=== PATIENT | female | born 1950 | race Caucasian/White ===

== ENCOUNTER 2017-03-18 09:15 | Emergency (ER) | payer MEDICARE, BC ==
[2017-03-18] MEDS ORDERED: Sodium Chloride 0.9% 10 ML Syringe FLUSH PRN (09:25)
[2017-03-18] MEDS ORDERED: Ondansetron 4 MG/2 ML SDV IVPUSH ONE (09:51)
[2017-03-18] MEDS ORDERED: Aspirin 81 MG Tab.Chew PO ONE (09:55)
--- NOTE | 2017-03-18 09:56 | EDM.PDOC ---
ED HPI GENERAL MEDICAL PROBLEM - General Chief Complaint: Neuro Symptoms/Deficits Stated Complaint: POSS. STROKE Time Seen by Provider: 03/18/17 09:21 Source of Information: Reports: Patient, Family History Limitations: Reports: No Limitations - History of Present Illness INITIAL COMMENTS - FREE TEXT/NARRATIVE: The patient presents with left sided numbness and weakness. She said she went to bed last night at 11pm and she was feeling fine. Last time known well is 11pm last night. She woke up about 2am and she thought she slept on her left arm because she had numbness in to left arm. She went back to sleep and woke up this morning with a slight headache, nausea, vomiting, left arm and leg numbness and she was off balance. When she arrived to the ER she had left sided numbness and weakness. She had no fever, chills, cough, chest pain, shortness of breath or abdominal pain. She started smoking 2 years ago after quiting 33 for 33 years. She did have hypercholesterolemia but with diet and exercise she got that down. She has no history of hypertension. Her father did have a stroke at at 64. She does have a history of A-fib. She is not on blood thinners because with the cardizem she stays out of the A-fib. She is in a sinus bradycardia now. Onset: Gradual Duration: Hour(s): Severity: Moderate Improves with: Reports: None Worsens with: Reports: None Associated Symptoms: Reports: Headaches. Denies: Confusion, Chest Pain, Fever/ Chills, Nausea/Vomiting, Shortness of Breath - Related Data Allergies Allergy/AdvReac Type Severity Reaction Status Date / Time Penicillins Allergy Cannot Verified 03/18/17 09:56 Remember ED ROS GENERAL - Review of Systems Review Of Systems: See Below Constitutional: Reports: No Symptoms HEENT: Reports: No Symptoms Respiratory: Reports: No Symptoms Cardiovascular: Reports: No Symptoms Endocrine: Reports: No Symptoms GI/Abdominal: Reports: Nausea, Vomiting. Denies: Abdominal Pain : Reports: No Symptoms Musculoskeletal: Reports: No Symptoms Skin: Reports: No Symptoms Neurological: Reports: Numbness (Left arm and leg), Weakness (Left arm and leg) ED EXAM, NEURO - Physical Exam Exam: See Below Exam Limited By: No Limitations General Appearance: Alert, No Apparent Distress Ears: Normal External Exam Nose: Normal Inspection Head Exam: Atraumatic, Normocephalic Neck: Normal Inspection Respiratory/Chest: No Respiratory Distress, Lungs Clear, Normal Breath Sounds Cardiovascular: Regular Rate, Rhythm, No Edema, No Murmur GI/Abdominal: Soft, Non-Tender, No Organomegaly, No Mass Neurological: Alert, Oriented x 3, Other (Mild to moderate weakness to her left arm and leg. Abnormal finger to nose on the left side) EKG INTERPRETATION EKG Date: 03/18/17 Time: 09:45 Rhythm: Other (sinus bradycardia) Rate (Beats/Min): 56 [place]: Normal P-Wave: Present QRS: Normal ST-T: Normal QT: Normal Course - Vital Signs Last Recorded V/S: Last Vital Signs Temp 98.9 F 03/18/17 09:45 Pulse 58 L 03/18/17 09:45 Resp 18 03/18/17 09:45 BP 121/72 03/18/17 09:45 Pulse Ox 99 03/18/17 09:45 - Orders/Labs/Meds Orders: Active Orders 24 hr Category Date Time Status Cardiac Monitoring [RC] . DIRECTED Care 03/18/17 09:25 Active EKG Documentation Completion [RC] STAT Care 03/18/17 09:25 Active Peripheral IV Care [RC] . DIRECTED Care 03/18/17 09:25 Active Head wo Cont [CT] Stat Exams 03/18/17 09:26 Taken COMPREHENSIVE METABOLIC PN,CMP [CHEM] Stat Lab 03/18/17 09:45 Received INR,PT,PROTHROMBIN TIME [COAG] Stat Lab 03/18/17 09:45 Received PTT,PARTIAL THROMBOPLSTIN TIME [COAG] Stat Lab 03/18/17 09:45 Received TROPONIN I [CHEM] Stat Lab 03/18/17 09:45 Received UA W/MICROSCOPIC [URIN] Stat Lab 03/18/17 09:25 Uncollected Sodium Chloride 0.9% @ 125 MLS/HR (1000ml Bag) Med 03/18/17 10:15 Ordered Sodium Chloride 0.9% [Normal Saline] 1,000 ml IV ASDIRECTED Sodium Chloride 0.9% [Saline Flush] Med 03/18/17 09:25 Active 10 ml FLUSH ASDIRECTED PRN Peripheral IV Insertion Adult [OM.PC] Stat Oth 03/18/17 09:25 Ordered Medication Orders Sodium Chloride (Normal Saline) 1,000 mls @ 125 mls/hr IV ASDIRECTED JD Sodium Chloride (Saline Flush) 10 ml FLUSH ASDIRECTED PRN PRN Reason: Keep Vein Open Last Admin: 03/18/17 09:52 Dose: 10 ml Labs: Laboratory Tests 03/18/17 Range/Units 09:45 WBC 7.41 (3.98-10.04) K/mm3 RBC 4.32 (3.98-5.22) M/mm3 Hgb 13.6 (11.2-15.7) gm/L Hct 42.1 (34.1-44.9) % MCV 97.5 H (79.4-94.8) fl MCH 31.5 (25.6-32.2) pg MCHC 32.3 (32.2-35.5) g/dl RDW Std Deviation 48.0 H (36.4-46.3) fL Plt Count 182 (182-369) K/mm3 MPV 9.4 (9.4-12.3) fl Neut % (Auto) 77.7 H (34.0-71.1) % Lymph % (Auto) 12.1 L (19.3-51.7) % [place] % (Auto) 8.5 (4.7-12.5) % Eos % (Auto) 1.6 (0.7-5.8) Baso % (Auto) 0.1 (0.1-1.2) % Neut # (Auto) 5.75 (1.56-6.13) K/mm3 Lymph # (Auto) 0.90 L (1.18-3.74) K/mm3 [place] # (Auto) 0.63 H (0.24-0.36) K/mm3 Eos # (Auto) 0.12 (0.04-0.36) K/mm3 Baso # (Auto) 0.01 (0.01-0.08) K/mm3 Meds: Medications Generic Name Dose Route Start Last Admin Trade Name Freq PRN Reason Stop Dose Admin Sodium Chloride 1,000 mls @ 125 mls/hr 03/18/17 10:15 Normal Saline IV ASDIRECTED JD Sodium Chloride 10 ml 03/18/17 09:25 03/18/17 09:52 Saline Flush FLUSH 10 ml ASDIRECTED PRN Administration Keep Vein Open Discontinued Medications Generic Name Dose Route Start Last Admin Trade Name Robinson PRN Reason Stop Dose Admin Aspirin 324 mg 03/18/17 09:55 03/18/17 10:05 Aspirin PO 03/18/17 09:56 324 mg ONETIME ONE Administration Ondansetron HCl 4 mg 03/18/17 09:51 03/18/17 10:05 Zofran IVPUSH 03/18/17 09:52 4 mg ONETIME ONE Administration - Re-Assessments/Exams Free Text/Narrative Re-Assessment/Exam: 03/18/17 10:13 A stroke alert was called and I went right into the room. The last time know well for the patient was 11pm last night. When we were getting her into bed she did have trouble with the left leg. A CT was done and it shows relatively acute/subacute right temporal infarct. I called [facility] in [place] and talked withe the neurologist closer on Dr Marinelli and he accepted the patient. He wanted her to have aspirin, IV NS at 125mL/hr and do not raise the head of her bed of 30degrees. She will be flying by [employer]. She is not a candidate for thrombolytics. She is out of the 3 to 4.5hour davina. Departure - Departure Time of Disposition: 10:20 Disposition: DC/Tfer to Acute Hospital 02 Condition: Serious Clinical Impression: Cerebrovascular accident (CVA) Qualifiers: CVA mechanism: unspecified Qualified Code(s): I63.9 - Cerebral infarction, unspecified - Discharge Information Referrals: Gale Nascimento PA-C [Primary Care Provider] - Forms: ED Department Discharge - My Orders Last 24 Hours: My Active Orders 03/18/17 09:25 Cardiac Monitoring [RC] . DIRECTED EKG Documentation Completion [RC] STAT Peripheral IV Care [RC] . DIRECTED UA W/MICROSCOPIC [URIN] Stat Sodium Chloride 0.9% [Saline Flush] 10 ml FLUSH ASDIRECTED PRN Peripheral IV Insertion Adult [OM.PC] Stat 03/18/17 09:26 Head wo Cont [CT] Stat 03/18/17 09:45 COMPREHENSIVE METABOLIC PN,CMP [CHEM] Stat INR,PT,PROTHROMBIN TIME [COAG] Stat PTT,PARTIAL THROMBOPLSTIN TIME [COAG] Stat TROPONIN I [CHEM] Stat 03/18/17 10:15 Sodium Chloride 0.9% @ 125 MLS/HR (1000ml Bag) Sodium Chloride 0.9% [Normal Saline] 1,000 ml IV ASDIRECTED - Assessment/Plan Last 24 Hours: My Active Orders 03/18/17 09:25 Cardiac Monitoring [RC] . DIRECTED EKG Documentation Completion [RC] STAT Peripheral IV Care [RC] . DIRECTED UA W/MICROSCOPIC [URIN] Stat Sodium Chloride 0.9% [Saline Flush] 10 ml FLUSH ASDIRECTED PRN Peripheral IV Insertion Adult [OM.PC] Stat 03/18/17 09:26 Head wo Cont [CT] Stat 03/18/17 09:45 COMPREHENSIVE METABOLIC PN,CMP [CHEM] Stat INR,PT,PROTHROMBIN TIME [COAG] Stat PTT,PARTIAL THROMBOPLSTIN TIME [COAG] Stat TROPONIN I [CHEM] Stat 03/18/17 10:15 Sodium Chloride 0.9% @ 125 MLS/HR (1000ml Bag) Sodium Chloride 0.9% [Normal Saline] 1,000 ml IV ASDIRECTED
--- NOTE | 2017-03-18 10:14 | CT ---
Head CT Technique: Multiple axial sections through the brain were obtained. Intravenous contrast was not utilized. Findings: Vague area of low density is seen within the anterior right parietal region suspicious for fairly acute ischemic infarct. Ventricles along with basal cisterns and sulci over the convexities are within normal limits. Atherosclerotic calcification is noted within the vertebral vessels and within the carotid siphon. No evidence of intracranial hemorrhage. No midline shift or mass effect is seen. Impression: 1. Vague low density within the right anterior parietal region suspicious for fairly acute ischemic infarct. 2. No evidence of intracranial hemorrhage. Diagnostic code #5
[2017-03-18] MEDS ORDERED: Sodium Chloride 0.9% 1,000 ML IV SCH (10:15)
== END 2017-03-18 10:42 ==
LOC: JD.ED 09:15
DX: I63.9 Cerebral infarction, unspecified (principal); Z88.0 Allergy status to penicillin
CPT/HCPCS: 36415; 70450; 70450-26; 80053; 82962; 84484; 85025; 85610; 85730; 93005; 96374; 99285-25; A9270-GY; J2405; J7040; J7050

== ENCOUNTER 2020-06-05 20:27 | Emergency (ER) | payer MEDICARE, BC ==
[2020-06-05] MEDS ORDERED: Sodium Chloride 0.9% 1,000 ML IV ONE (21:18)
--- NOTE | 2020-06-05 21:18 | EDM.PDOC ---
ED HPI GENERAL MEDICAL PROBLEM - General Chief Complaint: Neuro Symptoms/Deficits Stated Complaint: [facility] Time Seen by Provider: 06/05/20 20:28 Source of Information: Reports: Patient, Family (Son + [id number]) History Limitations: Reports: No Limitations - History of Present Illness INITIAL COMMENTS - FREE TEXT/NARRATIVE: Mrs. Bartholomew is a most pleasant 74-year-old woman who is now brought to the ED by EMS after she developed a brief episode of confusion and disorientation just prior to EMS being called. She states, and her son and [id number], also present in the ED, confirm, that the patient was over at her son and [id number]'s house, when she suddenly seemed to be confused. They report that she yawned a lot, and that she does not ordinarily on. She was smacking her lips, and said "The dinner's not burning, is it?", which was out of context. Entire episode lasted about 5 minutes, and had resolved by the time EMS arrived. From the patient's perspective, she does not recall asking about dinner, but notes that she was very upset after receiving some bad news about a friend today. She also reports being very tired. She states that she developed some nausea associated with being very thirsty while at her son's house, and that the nausea resolved while en route to the ED. at this time, she states that she feels completely back to normal. 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 It was because of this history of stroke that the patient's son called EMS. The patient also has a history of paroxysmal atrial fibrillation, on Eliquis, aspirin, diltiazem, and metoprolol. EMS found that she was in atrial fibrillation, although the patient acknowledges that she cannot tell when she goes into atrial fibrillation. She believes that her last episode was likely 8 years ago. Here in the ED, the patient is found to be hemodynamically stable, afebrile, saturating 98% on room air. An ECG, obtained at triage, confirms that she is in rate controlled atrial fibrillation, with no ischemic changes. Other than feeling tired and thirsty, prior to this evening, the patient denies having a recent fever, chills, sore throat, ear pain, nasal or sinus congestion, cough, dyspnea, chest pain, palpitations, nausea, vomiting, constipation, diarrhea, abdominal pain, urinary symptoms, recent weight gain or weight loss, recent bloody bowel movements or black bowel movements, recent joint aches, headaches, or rashes. The patient's PCP is JEMMA Palomino. She does not recall the name of her Neurologist in [place]. She does not recall the name of her Wood Finisher Apprentice at [facility]. - Related Data Allergies Allergy/AdvReac Type Severity Reaction Status Date / Time Penicillins Allergy Cannot Verified 06/05/20 20:32 Remember Home Meds: Home Meds Aspirin [Ecotrin] 325 mg PO DAILY 03/18/17 [History] Metoprolol Succinate/HCTZ [Metoprolol ER-Hctz 25-12.5 mg] 1 tape PO DAILY 03/18/17 [History] dilTIAZem HCL [Diltiazem ER] 1 cap PO DAILY 03/18/17 [History] Past Medical History Cardiovascular History: Reports: Afib, High Cholesterol Respiratory History: Reports: Asthma INVASIVE CARDIOLOGIST History: Reports: Psychiatric History: Reports: None Endocrine/Metabolic History: Reports: Obesity/BMI 30+ Social & Family History - Family History Family Medical History: No Pertinent Family History - Tobacco Use Tobacco Use Status *Q: Unknown Ever Used Tobacco ED ROS GENERAL - Review of Systems Review Of Systems: Comprehensive ROS is negative, except as noted in HPI. ED EXAM, GENERAL - Physical Exam Exam: See Below Exam Limited By: No Limitations General Appearance: Alert, WD/WN, No Apparent Distress Eye Exam: Bilateral Eye: EOMI, Normal Inspection, PERRL Ears: Normal External Exam, Normal Canal, Hearing Grossly Normal, Normal TMs Nose: Normal Inspection, Normal Mucosa, No Blood Throat/Mouth: Normal Inspection, Normal Lips, Normal Teeth, Normal Gums, Normal Oropharynx, Normal Voice, No Airway Compromise Head: Atraumatic, Normocephalic Neck: Normal Inspection, Supple, Non-Tender, Full Range of Motion. No: Carotid Bruit, Lymphadenopathy (L), Lymphadenopathy (R) Respiratory/Chest: No Respiratory Distress, Lungs Clear, Normal Breath Sounds, No Accessory Muscle Use Cardiovascular: Normal Peripheral Pulses, No Gallop, No JVD, No Murmur, No Rub, Irregularly Irregular (regular rate) Peripheral Pulses: 3+: Radial (L), Radial (R) GI/Abdominal: Normal Bowel Sounds, Soft, Non-Tender, No Organomegaly, No Distention, No Abnormal Bruit, No Mass Back Exam: Normal Inspection, Full Range of Motion, NT Extremities: Normal Inspection, Normal Range of Motion, Normal Capillary Refill Neurological: Alert, Oriented, CN II-XII Intact, Normal Cognition, No Motor/Sensory Deficits (equal strength bilaterally, despite earlier stroke) Psychiatric: Normal Affect Skin Exam: Warm, Dry, Intact, Normal Color, No Rash #1 Interpretation EKG Date: 06/05/20 Time: 20:30 Rhythm: A-Fib Rate (Beats/Min): 88 [place]: LAD-Left [place]born Deviation P-Wave: Absent QRS: Other (LVH. Early transition) ST-T: Normal QT: Normal Comparison: Change From Previous EKG (Was in NSR on 03/18/2017) Course - Vital Signs Last Recorded V/S: Last Vital Signs Temp 36.8 C 06/05/20 20:33 Pulse 96 06/05/20 20:33 Resp 16 06/05/20 20:33 BP 101/77 06/05/20 20:33 Pulse Ox 98 06/05/20 20:33 - Orders/Labs/Meds Orders: Active Orders 24 hr Category Date Time Status EKG Documentation Completion [RC] STAT Care 06/05/20 20:36 Active Head wo Cont [CT] Stat Exams 06/05/20 20:54 Taken CULTURE URINE [RM] Stat Lab 06/05/20 23:16 Ordered Labs: Laboratory Tests 06/05/20 06/05/20 06/05/20 Range/Units 20:32 20:32 22:49 WBC 6.71 (3.98-10.04) K/mm3 RBC 4.09 (3.98-5.22) M/mm3 Hgb 13.1 (11.2-15.7) gm/dl Hct 40.7 (34.1-44.9) % MCV 99.5 H (79.4-94.8) fl MCH 32.0 (25.6-32.2) pg MCHC 32.2 (32.2-35.5) g/dl RDW Std Deviation 47.4 H (36.4-46.3) fL Plt Count 222 (182-369) K/mm3 MPV 10.0 (9.4-12.3) fl Neutrophils % (Manual) 56 (40-60) % Band Neutrophils % 0 (0-10) % Lymphocytes % (Manual) 37 (20-40) % Atypical Lymphs % 0 % Monocytes % (Manual) 3 (2-10) % Eosinophils % (Manual) 2 (0.7-5.8) % Basophils % (Manual) 2 H (0.1-1.2) Platelet Estimate Adequate Anisocytosis 1+ slight Macrocytosis 1+ slight Sodium 142 (136-145) mEq/L Potassium 3.9 (3.5-5.1) mEq/L Chloride 105 (98-107) mEq/L Carbon Dioxide 26 (21-32) mEq/L Anion Gap 14.9 (5-15) BUN 17 (7-18) mg/dL Creatinine 1.4 H (0.55-1.02) mg/dL Est Cr Clr Drug Dosing TNP Estimated GFR (MDRD) 37 (>60) mL/min BUN/Creatinine Ratio 12.1 L (14-18) Glucose 138 H (83-115) mg/dL Calcium 9.1 (8.5-10.1) mg/dL Magnesium 1.8 (1.8-2.4) mg/dl Total Bilirubin 0.3 (0.2-1.0) mg/dL AST 19 (15-37) U/L ALT 17 (14-59) U/L Alkaline Phosphatase 73 (46-116) U/L Troponin I < 0.017 (0.00-0.056) ng/mL Total Protein 7.4 (6.4-8.2) g/dl Albumin 3.4 (3.4-5.0) g/dl Globulin 4.0 gm/dL Albumin/Globulin Ratio 0.9 L (1-2) Urine Color Yellow (Yellow) Urine Appearance Slt cloudy H (Clear) Urine pH 6.0 (5.0-8.0) Ur Specific Tensed > or = 1.030 (1.005-1.030) Urine Protein 1+ H (Negative) Urine Glucose (UA) Negative (Negative) Urine Ketones Trace H (Negative) Urine Occult Blood Trace-intact H (Negative) Urine Nitrite Negative (Negative) Urine Bilirubin Negative (Negative) Urine Urobilinogen 0.2 (0.2-1.0) Ur Leukocyte Esterase 1+ H (Negative) Urine RBC 0-5 (0-5) /hpf Urine WBC 10-20 H (0-5) /hpf Ur Squamous Epith Cells 0-5 (0-5) /hpf Urine Bacteria Few (FEW) /hpf Urine Mucus Moderate H (FEW) /hpf Meds: Medications Discontinued Medications Generic Name Dose Route Start Last Admin Trade Name Robinson PRN Reason Stop Dose Admin Sodium Chloride 1,000 mls @ 999 mls/hr 06/05/20 21:18 06/05/20 21:36 Normal Saline IV 06/05/20 22:18 999 mls/hr ONETIME ONE Administration - Re-Assessments/Exams Free Text/Narrative Re-Assessment/Exam: 06/05/20 21:14 As above, the patient developed some confusion lasting about 5 minutes, while over at her son and mvihznsb-dg-sqq's house just prior to coming to the ED. Her symptoms had resolved by the time EMS arrived, and she is completely lucid here in the ED. At no time did she suffer any focal neurologic deficits or dysarthric speech. Her neurologic exam is remarkably normal, despite the patient suffering a relatively large right CVA in March 2017, leading to left hemiparesis which the patient states she was able to recover from with physical therapy. No headache, blurry vision or other visual changes, tingling, numbness, or weakness, anywhere. She did have some nausea while at her son's house, which resolved en route to the ED. EMS found the patient in atrial fibrillation, rate controlled, which was confirmed on an ECG obtained at triage. The patient has a history of paroxysmal atrial fibrillation, and is unaware when she goes into A. fib. At present, she states that she is completely asymptomatic, other than feeling thirstydehydrated. I have ordered a work-up that includes several blood tests, and a urinalysis obtained by quick catheter. In the meantime, the patient will be given a liter bolus of NS. CT of the head without contrast is read by [facility] as: 1. Chronic change, probably chronic ischemic change as described. 2. No acute intracranial hemorrhage. 3. No acute intracranial findings. 4. No change. 06/05/20 22:34 The patient's CBC is unremarkable. Her CMP is remarkable for a Cr slightly elevated at 1.4, but with a BUN normal at 17, and mild hyperglycemia of 138, with the remainder of her CMP being unremarkable. Her magnesium level is within normal limits at 1.8. Her troponin is undetectably low. A urine sample for urinalysis has not yet been collected. 06/05/20 23:17 The patient's urinalysis is remarkable for trace occult blood with 0-5 RBCs, 1+ leukocyte esterase with 10-20 WBCs, nitrate negative with few bacteria, and 0-5 squamous epithelial cells. I have ordered a urine culture, but because the patient is asymptomatic, I am not going to start her on an antibiotic. 06/05/20 23:21 Test results discussed with the patient. As above, today's work-up is grossly unremarkable, and does not explain the cause of her symptoms. I suspect that her symptoms are due to her going into atrial fibrillation, although there is no way for me to be certain about that. It is also possible that she suffered a partial seizure or brief migraine. I would like the patient to follow-up with her Wood Finisher Apprentice, and, because of her mild hyperglycemia, her PCP, as she may have prediabetes. Departure - Departure Time of Disposition: 23:22 Disposition: Home, Self-Care 01 Condition: Good Clinical Impression: Paroxysmal atrial fibrillation, Episode of confusion, Hyperglycemia - Discharge Information *PRESCRIPTION DRUG MONITORING PROGRAM REVIEWED*: Not Applicable *COPY OF PRESCRIPTION DRUG MONITORING REPORT IN PATIENT ROSA: Not Applicable Referrals: Gale Nascimento PA-C [Physician Bioinformatics Engineer] - Forms: ED Department Discharge Additional Instructions: You were seen in the emergency room after having an episode of confusion. Work-up in the ER included several blood tests, a urinalysis, a CT scan of your head, and an ECG. Your ECG found you to be in atrial fibrillation, rate controlled. Your blood work found your blood sugar to be mildly elevated at 138. Your urinalysis was unremarkable, but not to the point that we are recommending treatment for a urinary tract infection. The remainder of your work-up was unremarkable. Based on your history, physical examination, and ER tests, the cause of your confusion is most likely due to your going into atrial fibrillation, although we cannot be certain of that. We recommend that you continue to take your current medications, as prescribed. We recommend that you follow-up with your Wood Finisher Apprentice at [facility], at the next available appointment. We recommend that you follow-up with your PCP, JEMMA Palomino, to discuss your elevated blood sugar. You likely have a condition called prediabetes. If any other problems, please do not hesitate to return to the ER. Sepsis Event Note (ED) - Evaluation Sepsis Screening Result: No Definite Risk - Focused Exam Vital Signs: Vital Signs Temp Pulse Resp BP Pulse Ox 06/05/20 20:33 36.8 C 96 16 101/77 98 - My Orders Last 24 Hours: My Active Orders 06/05/20 20:36 EKG Documentation Completion [RC] STAT 06/05/20 20:54 Head wo Cont [CT] Stat 06/05/20 23:16 CULTURE URINE [RM] Stat - Assessment/Plan Last 24 Hours: My Active Orders 06/05/20 20:36 EKG Documentation Completion [RC] STAT 06/05/20 20:54 Head wo Cont [CT] Stat 06/05/20 23:16 CULTURE URINE [RM] Stat
--- NOTE | 2020-06-06 08:04 | CT ---
Head CT Technique: Multiple axial sections through the brain were obtained. Intravenous contrast was not utilized. Reconstructed coronal and sagittal images were obtained. Comparison: Prior head CT study of 03/18/17. Findings: Well-defined area of low density is seen within the right frontal parietal region compatible with old infarct. Atherosclerotic calcification is seen within the vertebral vessels and within the carotid siphon. Slight diminished density is noted within the periventricular white matter compatible with mild small vessel ischemic demyelination change. Ventricles along with basal cisterns and sulci over the convexities appear within normal limits for the patient's age. No evidence of intracranial hemorrhage. No acute parenchymal change is appreciated. Bone window settings were reviewed. Visualized paranasal sinuses and mastoid sinuses show nothing acute. No acute calvarial abnormality is appreciated. Impression: 1. Old infarct within the right frontoparietal region. 2. Mild senescent change as noted above. 3. Nothing acute is appreciated. Diagnostic code #2 I agree with preliminary report from [facility], finalized on 06/05/20, 10:12 PM CDT, code #1
== END 2020-06-05 23:35 | disposition home or self-care (01) ==
LOC: JD.ED 20:27
DX: R41.0 Disorientation, unspecified (principal); I48.0 Paroxysmal atrial fibrillation; E66.9 Obesity, unspecified; E78.00 Pure hypercholesterolemia, unspecified; R73.9 Hyperglycemia, unspecified; Z79.82 Long term (current) use of aspirin; Z88.0 Allergy status to penicillin; Z68.30 Body mass index [BMI] 30.0-30.9, adult
CPT/HCPCS: 36415; 70450; 80053; 81001; 82947; 83735; 84484; 85007; 85027; 87086; 87088; 87186; 93005; 99285; J7030; 93010; 99284